=== PATIENT | male | born 1950 | race African-American/Black ===

== ENCOUNTER 2018-07-27 02:38 | Emergency (ER) | payer MEDICARE, BC ==
[~2018-07-27] VITALS: Ht 177.8 cm; Wt 87.0 kg
[~2018-07-27 02:38] MED LIST: GLIM2TAB2 PO; LOSA1TAB37 PO; RANI300T4 PO; RIVA20TA PO; SIMV20TA6 PO; SIMV40TA5 PO; SITA1TAB8 PO; TAMS-11 PO
[2018-07-27] MEDS ORDERED: METOPROLOL TARTRATE 5MG/5ML VIAL IV ONE (03:15)
[2018-07-27 03:30] LABS: BASOPHILS % 0.3 % (0.0-2.0); EOSINOPHILS % 0.7 % (0.0-5.0); HEMATOCRIT. 49.2 % (42.0-52.0); HEMOGLOBIN. 16.4 g/dL (14.0-18.0); LYMPHOCYTES % 18.2 % (20.0-50.0); MEAN CORPUSCULAR HEMOGLOBIN 30.9 pg (28.0-32.0); MEAN CORPUSCULAR VOLUME 92.8 fL (80.0-94.0); MONOCYTES % 9.1 % (2.0-8.0); NEUTROPHILS % 71.7 % (40.0-76.0); PLATELET 217 x1000/uL (130-400); RED CELL DISTRIBUTION WIDTH 14.5 % (11.6-14.6)
[2018-07-27 03:33] LABS: CHLORIDE 102 mEq/L (98-107)
[2018-07-27] MEDS ORDERED: METOPROLOL TARTRATE 5MG/5ML VIAL IV STA (04:29)
[2018-07-27 05:28] VITALS: BP 114/72
== END 2018-07-27 06:00 | disposition home or self-care (01) ==
LOC: ER 02:38
DX: I48.2 Chronic atrial fibrillation (principal); E11.9 Type 2 diabetes mellitus without complications; K21.9 Gastro-esophageal reflux disease without esophagitis; I11.9 Hypertensive heart disease without heart failure; Z98.890 Other specified postprocedural states; Z88.0 Allergy status to penicillin; Z79.899 Other long term (current) drug therapy
CPT/HCPCS: 36415; 71045; 80053; 83880; 84484; 85025; 93005; 96374; 96376; 99284; J3490

== ENCOUNTER 2022-05-23 20:10 | Emergency (ER) | payer MEDICARE, BC ==
[~2022-05-23] VITALS: Ht 177.8 cm; Wt 87.4 kg
[~2022-05-23 20:10] MED LIST changes: -GLIM2TAB2 PO; +GLIM2TAB30 PO; +SIMV-43 PO; +SIMV-46 PO; -SIMV20TA6 PO; -SIMV40TA5 PO
[2022-05-23 23:37] LABS: BASOPHILS % 0.2 % (0.0-2.0); EOSINOPHILS % 0.2 % (0.0-5.0); HEMATOCRIT. 45.9 % (42.0-52.0); HEMOGLOBIN. 15.6 g/dL (14.0-18.0); LYMPHOCYTES % 8.8 % (20.0-50.0); MEAN CORPUSCULAR HEMOGLOBIN 32.2 pg (28.0-32.0); MEAN CORPUSCULAR VOLUME 94.4 fL (80.0-94.0); MONOCYTES % 6.7 % (2.0-8.0); NEUTROPHILS % 84.1 % (40.0-76.0); PLATELET 228 x1000/uL (130-400); RED BLOOD CELL COUNT 4.86 mill/uL (4.7-6.1); RED CELL DISTRIBUTION WIDTH 14.1 % (11.6-14.6)
[2022-05-24 00:08] LABS: CHLORIDE 103 mEq/L (98-107)
[2022-05-24 00:21] LABS: ETHANOL BLOOD < 10 mg/dL
[2022-05-24] MEDS ORDERED: METOPROLOL TARTRATE 25MG TABLET PO ONE (02:45)
[2022-05-24 02:56] VITALS: BP 164/88
== END 2022-05-24 02:57 | disposition home or self-care (01) ==
LOC: ER 20:10
DX: R00.2 Palpitations (principal); E11.9 Type 2 diabetes mellitus without complications; I10 Essential (primary) hypertension; Z79.899 Other long term (current) drug therapy; Z88.0 Allergy status to penicillin
CPT/HCPCS: 36415; 71045; 80053; 80320; 83880; 84484; 85025; 93005; 99285; G0480

== ENCOUNTER 2023-07-14 23:16 | Emergency (ER) | payer MEDICARE, BC ==
[~2023-07-14] VITALS: Ht 177.8 cm; Wt 85.2 kg
[2023-07-14 23:30] VITALS: O2SAT 100
[2023-07-15] MEDS ORDERED: OXYM30SP26 BOTHNSTRLS (01:41)
[2023-07-15 02:02] VITALS: BP 148/71; PULSE 87; RESP 14; TEMP 97.7
== END 2023-07-15 02:04 | disposition home or self-care (01) ==
LOC: ER 23:16
DX: R04.0 Epistaxis (principal); E11.9 Type 2 diabetes mellitus without complications; I10 Essential (primary) hypertension; Z88.0 Allergy status to penicillin
CPT/HCPCS: 99282